=== PATIENT | female | born 1995 | race Caucasian/White ===

== ENCOUNTER 2024-11-10 05:34 | Emergency (ER) | payer OTHER ==
[~2024-11-10] VITALS: Ht 172.7 cm; Wt 56.7 kg
[2024-11-12 08:43] LABS: HEPATITIS B SURFACE ANTIBODY 7.57 IU/L
[2024-11-12 12:53] LABS: HEPATITIS C AB CIA INTERP Negative (Negative); HEPATITIS C ANTIBODY CIA INDEX 0.03 IV
[2024-11-12 13:49] LABS: HIV 1,2 COMBO ANTIGEN/ANTIBODY Negative (Negative)
== END 2024-11-10 06:30 | disposition home or self-care (01) ==
LOC: ER 05:34
DX: Z53.21 Procedure and treatment not carried out due to patient leaving prior to being seen by health care provider (principal); Z77.21 Contact with and (suspected) exposure to potentially hazardous body fluids
CPT/HCPCS: 84460; 86703; 86803; 87340; 87389; 99281